=== PATIENT | female | born 1995 | race Caucasian/White ===

== ENCOUNTER 2017-06-05 21:43 | Emergency (ER) | payer MEDICAID ==
[~2017-06-05] VITALS: Ht 175.3 cm; Wt 114.3 kg
[2017-06-05 21:45] VITALS: BP 143/94
[2017-06-05] MEDS ORDERED: ONDANSETRON ODT 4 MG PO ONE (22:30)
[2017-06-05 22:42] LABS: HEMATOCRIT 42.9 % (34.6-47.8); HEMOGLOBIN 14.6 g/dL (11.7-16.4); WHITE BLOOD COUNT 11.6 x10^3/uL (3.4-10)
[2017-06-05 22:52] LABS: BLOOD UREA NITROGEN 12 mg/dL (7-18)
[2017-06-05 22:57] LABS: ASPARTATE AMINO TRANSFERASE 11 U/L (15-37)
[2017-06-06] MEDS ORDERED: CEFTRIAXONE 1,000 MG IM ONE
[2017-06-06] MEDS ORDERED: CEFTRIAXONE 1,000 MG ONE (00:33)
[2017-06-06] MEDS ORDERED: LIDOCAINE 1%, 20ML ONE (00:33)
== END 2017-06-06 00:58 | disposition home or self-care (01) ==
LOC: ED 23:34
DX: O23.11 Infections of bladder in pregnancy, first trimester (principal); Z3A.00 Weeks of gestation of pregnancy not specified
CPT/HCPCS: 36415; 76817; 76856; 80053; 81001; 84702; 85025; 87077; 87086; 87186; 96372; 99285; J0696; Q0162

== ENCOUNTER 2018-03-01 01:52 | Emergency (ER) | payer MEDICAID ==
[~2018-03-01] VITALS: Ht 175.3 cm; Wt 111.0 kg
[2018-03-01 01:53] VITALS: BP 138/95
== END 2018-03-01 02:46 | disposition home or self-care (01) ==
LOC: ED 02:40
DX: B00.1 Herpesviral vesicular dermatitis (principal); G50.0 Trigeminal neuralgia; L01.01 Non-bullous impetigo
CPT/HCPCS: 99283

== ENCOUNTER 2020-07-24 16:34 | Emergency (ER) | payer OTHER, MEDICAID ==
[~2020-07-24] VITALS: Ht 175.3 cm; Wt 109.1 kg
--- NOTE | 2020-07-24 17:56 | NUR ---
PT RTD FROM RADIOLOGY. C-COLLAR REMOVED IN RADIOLOGY.
[2020-07-24] MEDS ORDERED: ONDANSETRON ODT 4 MG ONE (18:16)
[2020-07-24] MEDS ORDERED: IBUPROFEN 800 MG TABLET ONE (18:16)
[2020-07-24] MEDS ORDERED: IBUPROFEN 800 MG TABLET PO ONE (18:30)
[2020-07-24] MEDS ORDERED: ONDANSETRON ODT 4 MG PO ONE (18:30)
[2020-07-24 19:04] VITALS: BP 139/79
--- NOTE | 2020-07-24 19:27 | NUR ---
Patient given discharge instructions and they have confirmed that they understand the instructions. Patient ambulatory with steady gait.
== END 2020-07-24 19:29 | disposition home or self-care (01) ==
LOC: ED 18:11
DX: S16.1XXA Strain of muscle, fascia and tendon at neck level, initial encounter (principal); M54.6 Pain in thoracic spine; F17.210 Nicotine dependence, cigarettes, uncomplicated; V53.1XXA Passenger in pick-up truck or van injured in collision with car, pick-up truck or van in nontraffic accident, initial encounter; Y93.89 Activity, other specified; Y92.410 Unspecified street and highway as the place of occurrence of the external cause; Y99.8 Other external cause status
CPT/HCPCS: 72020; 72050; 72072; 99284; Q0162